=== PATIENT | male | born 1945 | race Caucasian/White ===

== ENCOUNTER 2016-06-01 06:44 | Day surgery (SDC) | payer MEDICARE, OTHER, MEDICAID ==
[~2016-06-01] VITALS: Ht 182.9 cm
[~2016-06-01 06:44] MED LIST: HYDROCODONE 7.7.5 MG PO; IMDUR DPS60 MG PO; LASIX DPS80 MG PO; LIPITOR DPS40 MG PO; LYRICA150 MG PO; MIRALAX PACKET17 GM PO; TOPROL XL DPS50 MG PO; XARELTO20 MG PO; ZESTRIL DPS5 MG PO
--- NOTE | 2016-06-03 08:18 | OR ---
ADMIT: 06/01/2016 RM/LOC: [facility] MR#: [id number] [address] [facility] [address] [place], [place] [address] [place] [address] [place], [place] [id number] Operative/Delivery Room Report SEX: M AGE: 70 : 1945 SURGERY DATE: 06/01/2016 SURGEON: Damaso Carroll MD PREPROCEDURAL DIAGNOSES: 1. Lumbar spondylosis. 2. Lumbago. 3. Chronic pain. POSTPROCEDURAL DIAGNOSES: 1. Lumbar spondylosis. 2. Lumbago. 3. Chronic pain. PROCEDURE PERFORMED: Bilateral lumbar facet injections at L3-L4, L4-L5, and L5-S1 levels. INDICATIONS FOR PROCEDURE: The patient is a pleasant gentleman with history of chronic low back pain secondary to above mentioned diagnoses, come here for planned lumbar facet injection. ANESTHESIA: Local without sedation. ESTIMATED BLOOD LOSS: Zero. COMPLICATIONS: None immediately evident. DESCRIPTION OF PROCEDURE: After the patient was seen in the preoperative area, vitals signs were taken. Prior to the procedure, the risks, benefits, and alternative therapies were discussed at length. Patient consent was obtained and updated. The patient was taken to the fluoroscopy suite and placed on the fluoroscopy table in the prone position. Pressure points were padded to comfort, monitors applied, and a timeout performed. The lumbosacral area was prepped sterilely using ChloraPrep. C-arm fluoroscopy was then brought in to identify facet joints on L3-L4, L4-L5, and L5-S1 on the right side. Lidocaine 1% plain approximately 1 mL was used to anesthetize the skin and underlying subcutaneous tissue at each level. At each level, a 3.5- inch 22-gauge spinal needle was used. The needle was then advanced to make contact with the superior articular facet at each level. The needle was then walked off and placed into a joint at each level. Isovue-300 0.5 mL was instilled at each level, which showed excellent intra-articular spread. The ADMIT: 06/01/2016 RM/LOC: [facility] MR#: [id number] [address] [facility], [place] [address] ELIJAH [place] Rae [address] [facility] [address] [place] [address] Operative/Delivery Room Report SEX: M AGE: 70 : 1945 patient did receive 0.5 mL of 0.25% Marcaine with approximately 40 mg of Depo- Medrol. The patient had reproduction of his typical pain at each level. The procedure was then repeated on the left. The patient tolerated the procedure well. The patient was brought to PACU where he recovered nicely without any complications. PLAN: The patient was examined after 20 minutes and had 80% reduction of pain. Range of motion, mainly extension, from 20 degree to 25 degree of extension. Discharge instructions were given, followup scheduled. The patient was discharged home with a long haul truck driver. Damaso Carroll MD/ sofie JOB #: [id number] CC: Damaso Carroll MD, Attending Physician Enrique Dukes MD, Family Physician
== END 2016-06-01 08:40 | disposition home or self-care (01) ==
LOC: SSS 06:44
PROC: BR16YZZ Fluoroscopy of Lumbar Facet Joint(s) using Other Contrast (ICD-10-PCS; principal; 2016-06-01)
PROC: 3E0U3BZ Introduction of Anesthetic Agent into Joints, Percutaneous Approach (ICD-10-PCS; principal; 2016-06-01)
PROC: 3E0U33Z Introduction of Anti-inflammatory into Joints, Percutaneous Approach (ICD-10-PCS; principal; 2016-06-01)
DX: G89.29 Other chronic pain (principal); M47.816 Spondylosis without myelopathy or radiculopathy, lumbar region; M12.88 Other specific arthropathies, not elsewhere classified, other specified site; M50.320 Other cervical disc degeneration, mid-cervical region, unspecified level; M54.12 Radiculopathy, cervical region; M46.1 Sacroiliitis, not elsewhere classified; M48.00 Spinal stenosis, site unspecified; Z79.899 Other long term (current) drug therapy

== ENCOUNTER 2016-06-15 10:53 | Day surgery (SDC) | payer MEDICARE, OTHER, MEDICAID ==
[~2016-06-15] VITALS: Ht 182.9 cm
--- NOTE | 2016-07-01 08:03 | OR ---
ADMIT: 06/15/2016 RM/LOC: [facility] MR#: [id number] [address] [place] [id number] [place] [address] [place] [id number] Operative/Delivery Room Report SEX: M AGE: 70 : 1945 CORRECTED; 06/29/2016 1234 DJS SURGERY DATE: 06/15/2016 SURGEON: Damaso Carroll MD COMPLIANCE REPRESENTATIVE DEALER: None. PREPROCEDURE DIAGNOSES: 1. Lumbar spondylosis. 2. Lumbago. POSTPROCEDURE DIAGNOSES: 1. Lumbar spondylosis. 2. Lumbago. PROCEDURE PERFORMED: Right L3, L4, L5, and S1 radiofrequency thermocoagulation. INDICATIONS FOR PROCEDURE: The patient is a pleasant gentleman with history of chronic low back pain secondary to above-mentioned diagnoses, who had a good diagnostic workup, comes here for planned right-sided lumbar radiofrequency ablation. ANESTHESIA: Local without sedation. ESTIMATED BLOOD LOSS: Zero. COMPLICATIONS: None immediately evident. DESCRIPTION OF THE PROCEDURE: After the patient was seen in the preoperative area, vitals signs were taken. Prior to the procedure, the risks, benefits, and alternative therapies were discussed at length. Patient consent was obtained and updated. The patient was taken to the fluoroscopy suite and placed on the fluoroscopy table in the prone position. Pressure points were padded to comfort, monitors applied, and a timeout performed. Fluoroscopy was brought in to identify the transverse process of the right- sided L3, L4, L5, and S1. To anesthetize the skin, a spinal cannula was placed ADMIT: 06/15/2016 RM/LOC: [facility] MR#: [id number] [address] [place] [id number] [place] [address] [place] [address] Operative/Delivery Room Report SEX: M AGE: 70 : 1945 near the junction of pedicle and transverse process. Once we obtained appropriate parameters for sensory motor testing, we proceeded with radiofrequency thermocoagulation at each level, which consisted of 80 degrees for 90 seconds. The patient tolerated the procedure well. The patient did not feel any stimulation below her knees. The patient was discharged to post anesthesia care without any immediate complications. PLAN: Discharge instructions were given, followup scheduled. The patient was discharged home with a transit driver. Damaso Carroll MD/ sofie JOB #: [id number] CC: Damaso Carroll MD, Attending Physician Enrique Dukes MD, Family Physician CORRECTED; 06/29/2016 1234 [place]
== END 2016-06-15 12:25 | disposition home or self-care (01) ==
LOC: SSS 10:53
PROC: 3E0T3TZ Introduction of Destructive Agent into Peripheral Nerves and Plexi, Percutaneous Approach (ICD-10-PCS; principal; 2016-06-15)
PROC: BR16YZZ Fluoroscopy of Lumbar Facet Joint(s) using Other Contrast (ICD-10-PCS; principal; 2016-06-15)
DX: G89.29 Other chronic pain (principal); M47.816 Spondylosis without myelopathy or radiculopathy, lumbar region; M12.88 Other specific arthropathies, not elsewhere classified, other specified site; Z79.899 Other long term (current) drug therapy

== ENCOUNTER 2016-06-29 07:04 | Day surgery (SDC) | payer MEDICARE, OTHER, MEDICAID ==
[~2016-06-29] VITALS: Ht 182.9 cm
--- NOTE | 2016-07-01 08:03 | OR ---
ADMIT: 06/29/2016 RM/LOC: [facility] MR#: [id number] [address] [address] [place] [address] [place] [address] Operative/Delivery Room Report SEX: M AGE: 70 : 1945 SURGERY DATE: 06/29/2016 SURGEON: Damaso Carroll MD WRAPPING MACHINE OPERATOR: None. PREPROCEDURE DIAGNOSES: 1. Lumbar spondylosis. 2. Lumbago. POSTPROCEDURE DIAGNOSES: 1. Lumbar spondylosis. 2. Lumbago. PROCEDURE PERFORMED: Left L3, L4, L5, and S1 radiofrequency thermocoagulation. INDICATIONS FOR PROCEDURE: The patient is a pleasant gentleman with chronic low back pain secondary to above mentioned diagnoses, comes here for planned left-sided lumbar radiofrequency ablation. ANESTHESIA: Local without sedation. ESTIMATED BLOOD LOSS: Zero. COMPLICATIONS: None immediately evident. DESCRIPTION OF THE PROCEDURE: After the patient was seen in the preoperative area, vitals signs were taken. Prior to the procedure, the risks, benefits, and alternative therapies were discussed at length. Patient consent was obtained and updated. The patient was taken to the fluoroscopy suite and placed on the fluoroscopy table in the prone position. Pressure points were padded to comfort, monitors applied, and a timeout performed. ADMIT: 06/29/2016 RM/LOC: [facility] MR#: [id number] [address] [address] [place] [address] [place] [address] Operative/Delivery Room Report SEX: M AGE: 70 : 1945 Fluoroscopy was brought in to identify the transverse process of the left- sided L3, L4, L5, and S1. To anesthetize the skin, a spinal cannula was placed near the junction of pedicle and transverse process. Once we obtained appropriate parameters for sensory motor testing, we proceeded with radiofrequency thermocoagulation at each level, which consisted of 80 degrees for 90 seconds. The patient tolerated the procedure well. The patient did not feel any stimulation below his knees. The patient was discharged to post anesthesia care without any immediate complications. PLAN: Discharge instructions were given, followup scheduled. The patient was discharged home with a limousine driver. Damaso Carroll MD/ sofie JOB #: [id number] CC: Damaso Carroll MD, Attending Physician Enrique Dukes MD, Family Physician
== END 2016-06-29 08:55 | disposition home or self-care (01) ==
LOC: SSS 07:04
PROC: BR16YZZ Fluoroscopy of Lumbar Facet Joint(s) using Other Contrast (ICD-10-PCS; principal; 2016-06-29)
PROC: 3E0T3TZ Introduction of Destructive Agent into Peripheral Nerves and Plexi, Percutaneous Approach (ICD-10-PCS; principal; 2016-06-29)
DX: G89.29 Other chronic pain (principal); M47.816 Spondylosis without myelopathy or radiculopathy, lumbar region; M54.12 Radiculopathy, cervical region; M50.320 Other cervical disc degeneration, mid-cervical region, unspecified level; M12.88 Other specific arthropathies, not elsewhere classified, other specified site; M46.1 Sacroiliitis, not elsewhere classified; M48.00 Spinal stenosis, site unspecified; I25.10 Atherosclerotic heart disease of native coronary artery without angina pectoris; I10 Essential (primary) hypertension; E78.5 Hyperlipidemia, unspecified; Z86.73 Personal history of transient ischemic attack (TIA), and cerebral infarction without residual deficits; F17.200 Nicotine dependence, unspecified, uncomplicated; Z79.899 Other long term (current) drug therapy; Z87.09 Personal history of other diseases of the respiratory system; Z79.82 Long term (current) use of aspirin